=== PATIENT | female | born 1965 | race Caucasian/White ===

== ENCOUNTER 2019-09-22 08:23 | Day surgery (SDC) | payer OTHER ==
[2019-09-20 12:32] VITALS: BMI 34.7
[~2019-09-22 08:23] MED LIST: BUPIVACAINE HCL/PF 0.25% (2.5MG/ML) 10 ML VIAL IJ ONE
[2019-09-22] MEDS ORDERED: PROPOFOL 20 ML ONE (10:24)
[2019-09-22] MEDS ORDERED: ONDANSETRON 4 MG/2 ML VIAL ONE (10:25)
[2019-09-22] MEDS ORDERED: MIDAZOLAM HCL 2 MG/2 ML SINGLE DOSE VIAL ONE (10:25)
[2019-09-22] MEDS ORDERED: KETOROLAC TROMETHAMINE 30 MG/1 ML VIAL ONE (10:25)
[2019-09-22] MEDS ORDERED: BUPIVACAINE HCL/PF 2.5 MG/ML - 30 ML VIAL IJ ONE (10:25)
[2019-09-22] MEDS ORDERED: DEXAMETHASONE SOD PHOSPHATE 4 MG/1 ML VIAL ONE (10:25)
[2019-09-22] MEDS ORDERED: SODIUM CHLORIDE 0.9% P/F 10 ML VIAL IJ ONE (10:25)
[2019-09-22] MEDS ORDERED: LIDOCAINE HCL/PF 2% SDV 5ML VIAL ONE (10:25)
[2019-09-22] MEDS ORDERED: ceFAZolin SODIUM 1 GM VIAL ONE (10:25)
[2019-09-22] MEDS ORDERED: ONDANSETRON 4 MG/2 ML VIAL IVPUSH PRN (10:29)
[2019-09-22] MEDS ORDERED: oxyCODONE HCL 5 MG TABLET PO PRN (10:29)
[2019-09-22] MEDS ORDERED: LACTATED RINGERS SOLUTION 1,000 ML IV SCH (10:30)
[2019-09-22] MEDS ORDERED: BUPIVACAINE HCL/PF 0.25% (2.5MG/ML) 10 ML VIAL IJ ONE (11:20)
[2019-09-22 13:12] VITALS: TEMP 98
--- NOTE | 2019-09-22 13:45 | OP ---
DATE OF OPERATION: 09/22/2019 LOCATION: [facility] SURGEON: Josh Tsang MD UPPER LEATHER SORTER: WILLIAMS Jackson POSTOPERATIVE DIAGNOSES: 1. Right knee medial and lateral meniscal tear. 2. Right knee cartilage injury. 3. Right knee synovitis. POSTOPERATIVE DIAGNOSES: 1. Right knee medial and lateral meniscal tear. 2. Right knee cartilage injury. 3. Right knee synovitis. PROCEDURE: 1. Right knee arthroscopy with partial meniscectomy, medial and lateral meniscus. CPT code 74672. 2. Right knee arthroscopy with chondroplasty and abrasoplasty. CPT code 46884. 3. Right knee arthroscopy with synovectomy. CPT code 50898. FINDINGS: 1. Medial meniscus body and posterior horn tear, inner one-third, with extensive complex tearing. 2. Lateral meniscus, entire posterior meniscus, posterior one-third from popliteal fossa to root. 3. Synovitis patellofemoral, mediolateral notch area. 4. Minor diffuse grade 1-2 changes to medial femoral condyle and tibial plateau. 5. ACL and PCL intact. 6. Four cm x 2 cm femoral and 4 cm x 3 cm central grade 2-3 changes lateral femoral condyle and tibial plateau. 7. Diffuse grade 2-3 changes patella with grade 4 changes at superior lateral patella, 2 cm x 1 cm. 8. One to 2 changes patellofemoral trochlea. PROCEDURE: Informed consent was obtained. The patient came to the operating room, where the lower extremity was prepped and draped in a sterile fashion. A tourniquet was placed on the upper thigh, but not inflated. Using standard arthroscopic technique, a lateral incision and portal was made to allow for introduction of the camera into the suprapatellar bursa. This was then taken to the medial joint line, where under direct visualization, a medial incision and portal was made. Excessive synovium noted in the medial, lateral and patellofemoral and notch area was removed by an upbiter, shaver and Bovie cautery. This was found to bring in inflammatory tissue into the joint surface, a source of pain and dysfunction. Probing of the medial and lateral meniscus found tears, as described in the findings. These were removed with the upbiter and shaver and taken back to a stable rim. Grade 2 to 3 degenerative changes were treated with a chondroplasty, removing all flaking surfaces with low-setting Bovie along the periphery to prevent further flaking. Grade 4 changes, as noted, were treated with an abrasoplasty, creating a bleeding surface at the bone/cartilage interface. Aggressive debridement with shaver/taran created bleeding surface. Micro fracture also done when indicated in findings. All areas of the knee were once again reexamined. The knee was then drained and a single suture was placed in all portals. A sterile dressing was placed and the patient was transferred to the recovery room without complication. The PA listed above was present and assisted at surgery. Their presence was absolutely medically necessary for the completion of the procedure. They helped hold the arthroscopy, pass instruments (and implants when indicated) and the procedure could not have been completed without their assistance. JOSH TSANG M.D. [id number]
[2019-09-22 13:47] VITALS: BP 133/81; PULSE 71
--- NOTE | 2019-09-26 17:07 | PATH ---
Surgical Pathology Report Patient Name: KIRSTIN COREA Med. Rec. #: [id number] /Age/Gender: 1965 (Age: 54) / F Account: [id number] Location: [facility] Taken: 09/22/2019 Received: 09/22/2019 Reported: 09/26/2019 Physicians: Josh Hess M.D. Specimen(s) Received RIGHT KNEE SHAVINGS Clinical History Internal derangement right knee Final Diagnosis RIGHT KNEE SHAVINGS: FRAGMENTS OF SYNOVIAL AND FIBROCARTILAGINOUS TISSUE WITH FOCAL DEGENERATIVE CHANGE AND FIBROSIS. Electronically Signed Jenifer Coker M.D. Gross Description Received in formalin, labeled "right knee shavings," is a 4.5 x 4.0 x 0.3 cm. aggregate of caro-yellow soft tissue fragments. A malt liquors sales representative portion is submitted in one cassette. /09/23/201909/23/2019
== END 2019-09-22 13:50 | disposition home or self-care (01) ==
LOC: FASU 08:23
PROVIDERS: ATTEND Orthopaedic Surgery
PROC: 0SBC4ZZ Excision of Right Knee Joint, Percutaneous Endoscopic Approach (ICD-10-PCS; 2019-09-22)
PROC: 0SBC4ZZ Excision of Right Knee Joint, Percutaneous Endoscopic Approach (ICD-10-PCS; 2019-09-22)
PROC: 0SBC4ZZ Excision of Right Knee Joint, Percutaneous Endoscopic Approach (ICD-10-PCS; principal; 2019-09-22 10:55)
DX: S83.241A Other tear of medial meniscus, current injury, right knee, initial encounter (principal); S83.281A Other tear of lateral meniscus, current injury, right knee, initial encounter; S83.8X1A Sprain of other specified parts of right knee, initial encounter; M65.861 Other synovitis and tenosynovitis, right lower leg; X58.XXXA Exposure to other specified factors, initial encounter; Y93.9 Activity, unspecified; Y92.9 Unspecified place or not applicable
CPT/HCPCS: 84703; 88304-TC

== ENCOUNTER 2021-06-21 00:15 | Emergency (ER) | payer OTHER ==
[2021-06-21 00:23] VITALS: BP 136/93; PULSE 91; TEMP 98.6; BMI 35.1
[2021-06-21] MEDS ORDERED: ACETAMINOPHEN 1000 MG/100 ML VIAL (NON FORMULARY) IVPB ONE (00:34)
[2021-06-21] MEDS ORDERED: ONDANSETRON 4 MG/2 ML VIAL IVPUSH ONE (00:34)
[2021-06-21] MEDS ORDERED: SODIUM CHLORIDE 1,000 ML IV STA (00:34)
[2021-06-21] MEDS ORDERED: ONDANSETRON 4 MG/2 ML VIAL ONE (00:38)
[2021-06-21] MEDS ORDERED: ACETAMINOPHEN INJECTION 100 ML IVPB ONE (00:38)
[2021-06-21 01:42] LABS: BASO % 0.4 % (0-2.0); EOS % 0.6 % (0-4.5); HEMATOCRIT 42.9 % (32.4-45.2); HEMOGLOBIN 14.3 GM/dL (10.7-15.3); LYMPH % 13.5 % (8-40); MCH 30.3 pg (25.7-33.7); MCHC 33.3 g/dl (32.0-36.0); MEAN CELL VOLUME 91.1 fl (80-96); MEAN PLT VOLUME 8.9 fl (7.5-11.1); MONO % 7.7 % (3.8-10.2); NEUT % 77.8 % (42.8-82.8); PLATELET COUNT 358 10^3/uL (134-434); RBC 4.71 M/mm3 (3.60-5.2); RDW 14.6 % (11.6-15.6); WHITE BLOOD COUNT 14.4 K/mm3 (4.0-10.0)
[2021-06-21 01:51] LABS: EPI CELLS >36 /uL (0-25.1); HYALINE CASTS 1 /uL (0-3.1); PH,URINE 5.5 (5.0-8.0); URINE APPEARANCE CLOUDY; URINE BACTERIA 1160 /uL (0-1359); URINE BILIRUBIN NEGATIVE (NEGATIVE); URINE COLOR DK YELLOW; URINE GLUCOSE (UA) NEGATIVE (NEGATIVE); URINE KETONE 1+ (NEGATIVE); URINE LEUK ESTERASE 1+ (NEGATIVE); URINE NITRITE NEGATIVE (NEGATIVE); URINE PROTEIN NEGATIVE (NEGATIVE); URINE RBC 4 /uL (0-23.9); URINE UROBILINOGEN 0.2 mg/dL (0.2-1.0); URINE WBC 7 /uL (0-25.8)
[2021-06-21 02:03] LABS: CALCIUM 9.2 mg/dL (8.5-10.1)
[2021-06-21 02:04] LABS: ALBUMIN 3.8 g/dl (3.4-5.0); BLOOD UREA NITROGEN 13.4 mg/dL (7-18)
[2021-06-21 02:07] LABS: CREATININE 0.8 mg/dL (0.55-1.3)
[2021-06-21 02:08] LABS: BILIRUBIN,TOTAL 1.5 mg/dL (0.2-1)
[2021-06-21] MEDS ORDERED: CIPROFLOXACIN 500 MG TABLET (RESTRICTED TO ID) PO ONE (04:03)
[2021-06-21] MEDS ORDERED: metroNIDAZOLE 500 MG TABLET PO ONE (04:03)
[2021-06-21] MEDS ORDERED: CIPROFLOXACIN 250 MG TABLET (RESTRICTED TO ID) PO ONE (04:09)
[2021-06-21] MEDS ORDERED: metroNIDAZOLE 250 MG TABLET ONE (04:09)
== END 2021-06-21 04:17 | disposition home or self-care (01) ==
LOC: FER 00:15
PROC: 3E0333Z Introduction of Anti-inflammatory into Peripheral Vein, Percutaneous Approach (ICD-10-PCS; principal; 2021-06-21)
PROC: 3E033GC Introduction of Other Therapeutic Substance into Peripheral Vein, Percutaneous Approach (ICD-10-PCS; 2021-06-21)
PROC: 3E0337Z Introduction of Electrolytic and Water Balance Substance into Peripheral Vein, Percutaneous Approach (ICD-10-PCS; 2021-06-21)
DX: K57.92 Diverticulitis of intestine, part unspecified, without perforation or abscess without bleeding (principal)
CPT/HCPCS: 36415; 74177-TC; 80053; 81003; 83690; 85025; 87086; 99285-25; J0131; Q9967

== ENCOUNTER 2021-11-09 22:16 | Emergency (ER) | payer OTHER ==
[2021-11-09 22:28] VITALS: BP 135/79; PULSE 84; TEMP 98.3; BMI 35.0
[2021-11-09] MEDS ORDERED: ACETAMINOPHEN 325 MG TABLET (FP) PO ONE (22:44)
[2021-11-09] MEDS ORDERED: ACETAMINOPHEN 325 MG TABLET (FP) ONE (22:50)
== END 2021-11-09 23:16 | disposition home or self-care (01) ==
LOC: FER 22:16
DX: S09.90XA Unspecified injury of head, initial encounter (principal); W23.1XXA Caught, crushed, jammed, or pinched between stationary objects, initial encounter
CPT/HCPCS: 99283-25

== ENCOUNTER 2022-06-09 22:45 | Emergency (ER) | payer OTHER ==
[2022-06-09 22:54] VITALS: BP 136/82; PULSE 62; RESP 17; TEMP 97.5; BMI 31.6
== END 2022-06-10 00:47 | disposition home or self-care (01) ==
LOC: FER 22:45
DX: I10 Essential (primary) hypertension (principal)
CPT/HCPCS: 93005; 99283-25

== ENCOUNTER 2022-10-10 23:40 | Emergency (ER) | payer OTHER ==
[2022-10-10 23:50] VITALS: BP 151/88; PULSE 88; RESP 16; TEMP 97.9; BMI 31.6
[2022-10-11] MEDS ORDERED: ACETAMINOPHEN 1000 MG/100 ML BAG IVPB ONE (00:57)
[2022-10-11 01:06] LABS: BASO % 0.6 % (0-2.0); EOS % 2.9 % (0-4.5); HEMATOCRIT 40.6 % (32.4-45.2); HEMOGLOBIN 13.4 GM/dL (10.7-15.3); LYMPH % 22.5 % (8-40); MEAN CELL VOLUME 90.9 fl (80-96); MEAN PLT VOLUME 9.1 fl (7.5-11.1); MONO % 7.6 % (3.8-10.2); NEUT % 66.4 % (42.8-82.8); PLATELET COUNT 375 10^3/uL (134-434); RBC 4.46 M/mm3 (3.60-5.2); RDW 14.1 % (11.6-15.6); WHITE BLOOD COUNT 9.7 K/mm3 (4.0-10.0)
[2022-10-11] MEDS ORDERED: ACETAMINOPHEN INJECTION 100 ML IVPB ONE (01:18)
[2022-10-11 01:45] LABS: CALCIUM 8.9 mg/dL (8.5-10.1)
[2022-10-11 01:46] LABS: ALBUMIN 3.4 g/dl (3.4-5.0); BLOOD UREA NITROGEN 12.4 mg/dL (7-18)
[2022-10-11 01:49] LABS: CREATININE 0.7 mg/dL (0.55-1.3)
[2022-10-11 01:51] LABS: BILIRUBIN,TOTAL 0.8 mg/dL (0.2-1); TOT PROT 6.8 g/dl (6.4-8.2)
== END 2022-10-11 02:16 | disposition home or self-care (01) ==
LOC: FER 23:40
PROC: 3E033GC Introduction of Other Therapeutic Substance into Peripheral Vein, Percutaneous Approach (ICD-10-PCS; principal; 2022-10-10)
DX: R07.89 Other chest pain (principal)
CPT/HCPCS: 36415; 80053; 84484; 85025; 93005; 99284-25

== ENCOUNTER 2024-01-02 13:33 | Emergency (ER) | payer OTHER ==
[2024-01-02] MEDS ORDERED: ACETAMINOPHEN 500 MG TABLET (FP) ONE (14:06)
[2024-01-02] MEDS: ACETAMINOPHEN 500 MG TABLET (FP) PO ONE (14:10)
[2024-01-02 14:11] VITALS: BP 136/79; PULSE 84; RESP 18; TEMP 100.7; BMI 32.9
== END 2024-01-02 14:27 | disposition home or self-care (01) ==
LOC: FER 13:33
DX: R05.9 Cough, unspecified (principal); B34.9 Viral infection, unspecified; R07.0 Pain in throat; R11.10 Vomiting, unspecified; Z20.822 Contact with and (suspected) exposure to COVID-19
CPT/HCPCS: 0241U-QW; 87651; 99283-25

== ENCOUNTER 2024-01-08 22:38 | Emergency (ER) | payer OTHER ==
[2024-01-08 22:49] VITALS: BP 127/72; PULSE 68; RESP 18; TEMP 98.4; BMI 33.0
[2024-01-09] MEDS ORDERED: MAG HYDROX/AL HYDROX/SIMETH 30 ML UNIT-DOSE CUP ONE (00:05)
[2024-01-09] MEDS ORDERED: ACETAMINOPHEN 325 MG TABLET (FP) ONE (00:05)
[2024-01-09] MEDS ORDERED: FAMOTIDINE 20 MG TABLET ONE (00:05)
[2024-01-09] MEDS: ACETAMINOPHEN 325 MG TABLET (FP) PO ONE (00:10)
[2024-01-09] MEDS: MAG HYDROX/AL HYDROX/SIMETH 30 ML UNIT-DOSE CUP PO ONE (00:10)
[2024-01-09] MEDS: FAMOTIDINE 20 MG TABLET PO ONE (00:10)
== END 2024-01-09 00:45 | disposition left against medical advice (07) ==
LOC: JER 22:38
DX: R21 Rash and other nonspecific skin eruption (principal); R10.84 Generalized abdominal pain; R19.7 Diarrhea, unspecified; L29.9 Pruritus, unspecified
CPT/HCPCS: 99283-25

== ENCOUNTER 2024-06-25 19:31 | Emergency (ER) | payer OTHER ==
[2024-06-25 19:39] VITALS: BP 127/84; PULSE 78; RESP 18; TEMP 98.2; BMI 33.8
[2024-06-25] MEDS ORDERED: MAG HYDROX/AL HYDROX/SIMETH 30 ML UNIT-DOSE CUP ONE (20:33)
[2024-06-25] MEDS: MAG HYDROX/AL HYDROX/SIMETH 30 ML UNIT-DOSE CUP PO ONE (20:35)
== END 2024-06-25 20:52 | disposition home or self-care (01) ==
LOC: JERFT 19:31
DX: R14.0 Abdominal distension (gaseous) (principal); R09.89 Other specified symptoms and signs involving the circulatory and respiratory systems; R05.9 Cough, unspecified
CPT/HCPCS: 99283-25